=== PATIENT | female | born 1955 | race Caucasian/White ===

== ENCOUNTER 2017-08-23 21:44 | Inpatient (IN) | payer MEDICAID ==
[~2017-08-23] VITALS: Ht 165.1 cm; Wt 175.3 kg
[~2017-08-23 21:44] MED LIST: A/B OTIC15 ML; ATENOLOL50 MG PO; BAYER ASPIRIN R81 MG PO; CARDURA2 MG; HUMALOG100 U/ML; HUMALOG100 U/ML INJ; HYDROCHLOROTHIA25 MG; LISINOPRIL20 MG PO; LOP600 PO; MEDDP PO; METFORMIN HCL1000 MG PO; NOVI; NOVOLOG MI10 U/0.11 SQ; PROAIR HFA0.09 MG/A1 INH
[2017-08-23 21:52] VITALS: Ht 165.1 cm; Wt 175.3 kg
[2017-08-23 23:21] LABS: BASOPHIL % 0.6 % (0-2); PLATELET COUNT 312 x10^3mcL (130-400)
[2017-08-23 23:25] LABS: RED CELL DISTRIBUTION WIDTH 16.1 % (11.5-14.5)
[2017-08-23 23:33] LABS: CALCIUM 9.8 mg/dL (8.5-10.1); CARBON DIOXIDE 30.6 mmol/L (21-32); CHLORIDE SERUM 100 mmol/L (98-107); CREATININE SERUM 0.9 mg/dL (0.6-1.0); GFR1 > 60 mL/min; GLUCOSE SERUM 209 mg/dL (74-106); POTASSIUM SERUM 4.2 mmol/L (3.5-5.1); SODIUM SERUM 138 mmol/L (136-145)
[2017-08-23 23:47] LABS: ALBUMIN 3.4 g/dL (3.4-5.0); ALKALINE PHOSPHATASE 106 U/L (46-116); ALT/SGPT 24 U/L (14-59); AMYLASE 27 U/L (25-115); AST/SGOT 19 U/L (15-37); BILIRUBIN TOTAL 0.4 mg/dL (0.20-1.00); CHOLESTEROL 163 mg/dL (<200); HDL CHOLESTEROL 40 mg/dL (40-60); LIPASE 133 IU/L (73-393); T4(THYROXINE) 9.1 ug/dL (4.7-13.3); TOTAL PROTEIN, SERUM 7.9 g/dL (6.4-8.2)
[2017-08-24] VITALS (7 sets, daily range): BP systolic 103–149; BP diastolic 47–79
[2017-08-24 01:46] LABS: microscopic required? NO
[2017-08-24 02:01] LABS: urine erythrocyte NEGATIVE (NEGATIVE)
[2017-08-24 02:27] LABS: AMPHETAMINE QUAL UR NONE DETECTED (NEG <=1000)
[2017-08-24 04:20] LABS: T3 TOTAL 0.98 ng/mL
[2017-08-24 04:31] LABS: BASOPHIL % 0.2 % (0-2); PLATELET COUNT 313 x10^3mcL (130-400); RED CELL DISTRIBUTION WIDTH 15.8 % (11.5-14.5)
[2017-08-24 04:32] LABS: MAGNESIUM 1.4 mg/dL (1.8-2.4)
[2017-08-24 04:42] LABS: CALCIUM 9.9 mg/dL (8.5-10.1); CARBON DIOXIDE 32.5 mmol/L (21-32); CHLORIDE SERUM 98 mmol/L (98-107); CREATININE SERUM 0.9 mg/dL (0.6-1.0); GFR1 > 60 mL/min; GLUCOSE SERUM 253 mg/dL (74-106); MAGNESIUM 1.3 mg/dL (1.8-2.4); PHOSPHOROUS 3.1 mg/dL (2.5-4.9); POTASSIUM SERUM 4.2 mmol/L (3.5-5.1); SODIUM SERUM 137 mmol/L (136-145); TRIGLYCERIDES 128 mg/dL (<150)
[2017-08-24 04:43] LABS: PHOSPHOROUS 3.7 mg/dL (2.5-4.9)
[2017-08-25 05:29] VITALS: BP 106/59
[2017-08-25 07:45] LABS: CARBON DIOXIDE 29.5 mmol/L (21-32); CHLORIDE SERUM 99 mmol/L (98-107); CREATININE SERUM 0.8 mg/dL (0.6-1.0); GFR1 > 60 mL/min; GLUCOSE SERUM 146 mg/dL (74-106); SODIUM SERUM 136 mmol/L (136-145)
[2017-08-25 08:21] LABS: BASOPHIL % 0.2 % (0-2); PLATELET COUNT 263 x10^3mcL (130-400)
[2017-08-25 08:23] LABS: RED CELL DISTRIBUTION WIDTH 16.2 % (11.5-14.5)
[2017-08-25 09:11] VITALS: BP 116/53
[2017-08-25 13:52] VITALS: BP 132/49
[2017-08-25] MEDS ORDERED: LEVAQUIN750 MG PO (15:26)
[2017-08-25] MEDS ORDERED: BD LACTINEX1.4 MG PO (15:27)
[2017-08-25] MEDS ORDERED: NITROSTAT0.4 MG SL (15:30)
[2017-08-25] MEDS ORDERED: COLD & FLU REL180 ML PO (15:40)
[2017-08-25] MEDS ORDERED: MAGNESIUM OXID400 MG PO (15:42)
[2017-08-25 16:01] VITALS: BP 132/49
== END 2017-08-25 16:45 | disposition home or self-care (01) | DRG 137 ==
LOC: ED 21:44 → DU 08-24 00:58
PROVIDERS: Emergency Medicine; Family Medicine
DX: J69.0 Pneumonitis due to inhalation of food and vomit (principal); J96.00 Acute respiratory failure, unspecified whether with hypoxia or hypercapnia; E43 Unspecified severe protein-calorie malnutrition; D68.69 Other thrombophilia; E11.51 Type 2 diabetes mellitus with diabetic peripheral angiopathy without gangrene; Z68.44 Body mass index [BMI] 60.0-69.9, adult; E11.65 Type 2 diabetes mellitus with hyperglycemia; E66.01 Morbid (severe) obesity due to excess calories; M94.0 Chondrocostal junction syndrome [Tietze]; B35.4 Tinea corporis; I10 Essential (primary) hypertension; I45.2 Bifascicular block; F32.9 Major depressive disorder, single episode, unspecified; E78.5 Hyperlipidemia, unspecified; M19.90 Unspecified osteoarthritis, unspecified site; Z79.82 Long term (current) use of aspirin; Z79.84 Long term (current) use of oral hypoglycemic drugs; Z86.73 Personal history of transient ischemic attack (TIA), and cerebral infarction without residual deficits
CPT/HCPCS: 36600; 82962; 83880; 94150; J1815; J1940; J1956; J3475; J3490; J7030; J7620; Q0092